=== PATIENT | female | born 1940 | race Caucasian/White ===

== ENCOUNTER 2016-12-25 14:23 | Inpatient (IN) | payer OTHER ==
[~2016-12-25] VITALS: Ht 170.2 cm; Wt 72.6 kg
[2016-12-25 14:23] VITALS: BP 130/72
[2016-12-25 15:07] LABS: ABSOLUTE NEUTROPHILS 5.8 thou/uL (1.4-8.2); BASOPHILS 0.5 % (0.0-2.0); EOSINOPHILS 2.5 % (0.0-3.0); HEMATOCRIT 37.9 % (37.0-47.0); HEMOGLOBIN 12.6 gm/dL (12.0-15.0); LYMPHOCYTES 12.1 % (24.0-44.0); MCHC 33.1 g/dL (28.0-37.0); MCV 84.4 fL (80.0-100.0); MONOCYTES 5.3 % (1.0-8.0); PLATELET COUNT 303 thou/uL (150-400); POLYS 79.6 % (36.0-66.0); RDW 16.2 % (10.5-14.5); WBC 7.2 thou/uL (4.0-11.0)
[2016-12-25 15:08] LABS: MANUAL DIFF NO
[2016-12-25 15:16] LABS: ANION GAP 6 mmol/L (7-16); BUN 20 mg/dL (7-18); CALCIUM 9.1 mg/dL (8.5-10.1); CHLORIDE 103 mmol/L (98-107); CO2 30 mmol/L (21-32); CREATININE 0.7 mg/dL (0.6-1.0); GLUCOSE 87 mg/dL (74-106); POTASSIUM 3.8 mmol/L (3.5-5.1); SODIUM 139 mmol/L (136-145)
[2016-12-25 15:25] LABS: TROPONIN-I < 0.04 ng/mL (<0.04-0.07)
[2016-12-25 17:26] VITALS: BP 124/74
[2016-12-25 17:27] VITALS: BP 140/59
[2016-12-25] MEDS ORDERED: DUONEB 2.5-0.5 M3 ML INH (19:52)
[2016-12-25] MEDS ORDERED: MIRALAX17 GM PO (19:53)
[2016-12-25] MEDS ORDERED: APAP650 PO (19:54)
[2016-12-25] MEDS ORDERED: DIPHENHIST50 MG PO (19:56)
[2016-12-25] MEDS ORDERED: DEEP SEA NASAL44 M1 NS (19:56)
[2016-12-25] MEDS ORDERED: ATIVAN1 MG PO (19:57)
[2016-12-25] MEDS ORDERED: MI ACID SUSPEN355 ML PO (19:58)
[2016-12-25] MEDS ORDERED: ROBAFEN100 MG/5 M PO (19:59)
[2016-12-25 20:34] VITALS: BP 133/66
[2016-12-25 20:36] VITALS: BP 133/66
[2016-12-25] MEDS ORDERED: SEROQUEL 50 MG50 MG PO (21:56)
[2016-12-25] MEDS ORDERED: ZOCOR20 MG PO (21:57)
[2016-12-25] MEDS ORDERED: FLOMAX0.4 MG PO (21:58)
[2016-12-25] MEDS ORDERED: BENZTROPINE ME0.5 MG PO (21:59)
[2016-12-25] MEDS ORDERED: SENOKOT-S1 TA1 PO (22:02)
[2016-12-25] MEDS ORDERED: OXCARBAZEPINE300 M1 PO (22:03)
[2016-12-25] MEDS ORDERED: REMERON15 MG PO (22:04)
[2016-12-25] MEDS ORDERED: ASPIRIN EC81 M1 PO (22:07)
[2016-12-25] MEDS ORDERED: LEVOTHYROXINE 0.1 MG PO (22:07)
[2016-12-25] MEDS ORDERED: UNICOMPLEX M TA1 TA1 PO ×2 (22:08→22:09)
[2016-12-25] MEDS ORDERED: INVEGA6 MG PO (22:08)
[2016-12-25] MEDS ORDERED: ZANTAC 150MG T150 MG PO (22:10)
[2016-12-26 00:05] VITALS: BP 121/61
[2016-12-26 04:00] VITALS: BP 151/67
[2016-12-26 05:21] LABS: HEMATOCRIT 37.4 % (37.0-47.0); HEMOGLOBIN 12.3 gm/dL (12.0-15.0); MCHC 32.8 g/dL (28.0-37.0); MCV 85.4 fL (80.0-100.0); RBC 4.38 mil/uL (4.20-5.00); RDW 16.2 % (10.5-14.5); WBC 5.1 thou/uL (4.0-11.0)
[2016-12-26 05:31] LABS: CALCIUM 8.8 mg/dL (8.5-10.1); CREATININE 0.6 mg/dL (0.6-1.0)
[2016-12-26 08:00] VITALS: BP 148/76
[2016-12-26 15:36] VITALS: BP 138/60
[2016-12-26 19:18] VITALS: BP 138/59
[2016-12-27 04:58] VITALS: BP 122/62
[2016-12-27 08:55] VITALS: BP 132/76
[2016-12-27] MEDS ORDERED: CLEOCIN HCL150 MG PO (10:02)
== END 2016-12-27 11:08 | DRG 177 ==
LOC: ER 14:23 → 4S 15:54 → EROBS 15:54 → 4S 17:15
PROVIDERS: Emergency Medicine; Hospitalist
DX: J69.0 Pneumonitis due to inhalation of food and vomit (principal); G92 Toxic encephalopathy; E03.9 Hypothyroidism, unspecified; E78.5 Hyperlipidemia, unspecified; F02.80 Dementia in other diseases classified elsewhere, unspecified severity, without behavioral disturbance, psychotic disturbance, mood disturbance, and anxiety; F41.9 Anxiety disorder, unspecified; F20.9 Schizophrenia, unspecified; I10 Essential (primary) hypertension; K21.9 Gastro-esophageal reflux disease without esophagitis; F32.9 Major depressive disorder, single episode, unspecified; G20 Parkinson's disease; Z88.1 Allergy status to other antibiotic agents; Z88.0 Allergy status to penicillin; Z88.6 Allergy status to analgesic agent; Z88.8 Allergy status to other drugs, medicaments and biological substances
CPT/HCPCS: 10195